=== PATIENT | male | born 1975 | race Caucasian/White ===

== ENCOUNTER 2016-07-12 02:09 | Emergency (ER) | payer OTHER ==
[2016-07-12 02:22] VITALS: BP 167/110
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
== END 2016-07-12 04:51 | disposition home or self-care (01) ==
LOC: JD.ED 02:09
DX: F45.8 Other somatoform disorders (principal); F41.8 Other specified anxiety disorders; F17.210 Nicotine dependence, cigarettes, uncomplicated; Z98.890 Other specified postprocedural states; Z79.899 Other long term (current) drug therapy
CPT/HCPCS: 36415; 36600; 80053; 82803; 85025; 85379; 85610; 85730; 93005; 99284; 99284-25

== ENCOUNTER 2017-11-28 18:34 | Emergency (ER) | payer BC, OTHER ==
[2017-11-28 18:44] VITALS: BP 134/89
--- NOTE | 2017-11-28 20:24 | EDM.PDOCBH ---
ED HPI GENERAL MEDICAL PROBLEM - General Chief Complaint: Behavioral/Psych Stated Complaint: MEDICAL CLERANCE Time Seen by Provider: 11/28/17 18:46 - History of Present Illness INITIAL COMMENTS - FREE TEXT/NARRATIVE: Social 42-year-old male with a history of depression presenting with reported suicidal ideation. Patient was reportedly binge drinking approximately one handle of liquor. He did begin to have some thoughts of self-harm. He called a friend who then asked him to call police. He called one of the [employer]'s department responded. The safety engineer's department nearly didn't transport him to the emergency department and felt that he had been safe but at the last moment he voiced some suicidal ideation and did not endorse a plan to them. To me the patient denies a plan as well. Patient does state that he's been depressed lately about losing custody of his kids and elevated Isael. He's also changing jobs. He put in his 2 weeks noticed that his current jowl started [employer] Patient states he has no prior suicide attempts. He has held a gun at times but never attempted to kill himself. He has no current access to firearms either. He takes duloxetine at home as well as citalopram. He's missed doses of past 2 days. He follows his psychiatrist and my not. He last fell about a month ago and has some follow-up scheduled but does know exactly when the appointment is. To me currently in the emergency department the patient denies any suicidal ideation. He also directly denies a plan to me at this time. He is forward- looking with hopes to see his children be there for them as a father. He also is curently wondering at what time he can be discharged because he has work tomorrow at 3 AM. Last drink was 2 hrs ago, no hx of etoh withdrawal. head Pain Score (Numeric/FACES): 5 - Related Data Allergies Allergy/AdvReac Type Severity Reaction Status Date / Time No Known Allergies Allergy Verified 11/28/17 18:44 Home Meds: Home Meds Citalopram Hydrobromide [Citalopram HBr] 40 mg PO DAILY 06/04/14 [History] Multivitamin [Multi-Vitamin Daily] 1 tab PO DAILY 09/10/14 [History] ClonazePAM [KlonoPIN] 0.5 mg PO BID PRN #6 tablet 06/05/15 [Rx] cloNIDine [Catapres] 0.2 mg PO BEDTIME 06/05/15 [History] DULoxetine [Cymbalta] 20 mg PO DAILY 11/28/17 [History] metFORMIN [Glucophage] 500 mg PO DAILY 11/28/17 [History] Past Medical History Other HEENT History: wears contacts Other Cardiovascular History: states BP has been "borderline" for yrs. Other Gastrointestinal History: states has stomach ulcer, states occ has "black , bloody substance" with stools. Other Musculoskeletal History: states has arthritis in L) ankle Neurological History: Reports: Migraines Psychiatric History: Reports: Anxiety, Depression, Suicidal Ideation Endocrine/Metabolic History: Reports: Diabetes, Type II Other Endocrine/Metabolic History: borderline - Past Surgical History HEENT Surgical History: Reports: Oral Surgery, Tonsillectomy Social & Family History - Family History Family Medical History: Noncontributory - Tobacco Use Smoking Status *Q: Current Every Day Smoker Years of Tobacco use: 4 Packs/Tins Daily: 0.5 - Caffeine Use Caffeine Use: Reports: Coffee, Soda - Recreational Drug Use Recreational Drug Use: No - Living Situation & Occupation Living situation: Reports: , Alone Occupation: Employed ED ROS GENERAL - Review of Systems Review Of Systems: See Below Constitutional: Reports: No Symptoms HEENT: Reports: No Symptoms Respiratory: Reports: No Symptoms Cardiovascular: Reports: No Symptoms Endocrine: Reports: No Symptoms GI/Abdominal: Reports: No Symptoms Psychiatric: Reports: Depression, Suicidal Ideation ED EXAM, BEHAVIORAL HEALTH - Physical Exam Exam: See Below Exam Limited By: Altered Mental Status General Appearance: Alert, No Apparent Distress Neck: Normal Inspection, Non-Tender Respiratory/Chest: No Respiratory Distress, Lungs Clear Cardiovascular: Normal Peripheral Pulses, Regular Rate, Rhythm GI/Abdominal: Soft, Non-Tender, No Distention Psychiatric: Alert, Normal Affect, Normal Cognition, Depressed Mood, Other ( Denies homicidal ideation, suicidal ideation. Has no plan for suicide. Denies any thoughts of self-harm as well. However he is depressed about his current situation and changing jobs. He is hopeful and looks to the future.) COURSE, BEHAVIORAL HEALTH COMP - Course Vital Signs: Last Vital Signs Temp 36.6 C 11/28/17 18:35 Pulse 79 11/28/17 18:35 Resp 18 11/28/17 18:35 BP 134/89 11/28/17 18:35 Pulse Ox 97 11/28/17 18:35 Orders, Labs, Meds: Active Orders 24 hr Category Date Time Status DRUG SCREEN, URINE [URCHEM] Stat Lab 11/28/17 19:55 Ordered Laboratory Tests 11/28/17 11/28/17 11/28/17 Range/Units 19:41 19:41 19:41 WBC 11.73 H (4.23-9.07) K/mm3 RBC 5.92 (4.63-6.08) M/mm3 Hgb 17.4 (13.7-17.5) gm/L Hct 51.0 (40.1-51.0) % MCV 86.1 (79.0-92.2) fl MCH 29.4 (25.7-32.2) pg MCHC 34.1 (32.2-35.5) g/dl RDW Std Deviation 45.4 H (35.1-43.9) fL Plt Count 190 (163-337) K/mm3 MPV 10.2 (9.4-12.3) fl Neut % (Auto) 69.9 H (34.0-67.9) % Lymph % (Auto) 18.9 L (21.8-53.1) % [place] % (Auto) 8.3 (5.3-12.2) % Eos % (Auto) 2.0 (0.8-7.0) Baso % (Auto) 0.7 (0.1-1.2) % Neut # (Auto) 8.20 H (1.78-5.38) K/mm3 Lymph # (Auto) 2.22 (1.32-3.57) K/mm3 [place] # (Auto) 0.97 H (0.30-0.82) K/mm3 Eos # (Auto) 0.24 (0.04-0.54) K/mm3 Baso # (Auto) 0.08 (0.01-0.08) K/mm3 Sodium 139 (136-145) mEq/L Potassium 3.9 (3.5-5.1) mEq/L Chloride 103 (98-107) mEq/L Carbon Dioxide 20 L (21-32) mEq/L Anion Gap 19.9 H (5-15) BUN 14 (7-18) mg/dL Creatinine 1.4 H (0.7-1.3) mg/dL Est Cr Clr Drug Dosing 82.15 mL/min Estimated GFR (MDRD) 56 (>60) mL/min BUN/Creatinine Ratio 10.0 L (14-18) Glucose 181 H (74-106) mg/dL Calcium 9.0 (8.5-10.1) mg/dL Total Bilirubin 0.3 (0.2-1.0) mg/dL AST 28 (15-37) U/L ALT 59 (16-63) U/L Alkaline Phosphatase 108 (46-116) U/L Total Protein 6.9 (6.4-8.2) g/dl Albumin 3.9 (3.4-5.0) g/dl Globulin 3.0 gm/dL Albumin/Globulin Ratio 1.3 (1-2) Salicylates 4.3 (2.8-20) mg/dL Urine Opiates Screen (NEGATIVE) Ur Buprenorphine Scrn (NEGATIVE) Ur Oxycodone Screen (NEGATIVE) Urine Methadone Screen (NEGATIVE) Ur Propoxyphene Screen (NEGATIVE) Acetaminophen 0 L (10-30) ug/mL Ur Barbiturates Screen (NEGATIVE) Ur Tricyclics Screen (NEGATIVE) Ur Phencyclidine Scrn (NEGATIVE) Ur Amphetamine Screen (NEGATIVE) U Methamphetamines Scrn (NEGATIVE) U Benzodiazepines Scrn (NEGATIVE) U Cocaine Metab Screen (NEGATIVE) U Marijuana (THC) Screen (NEGATIVE) Ethyl Alcohol 0.15 (0.00) gm% 11/28/17 Range/Units 19:55 WBC (4.23-9.07) K/mm3 RBC (4.63-6.08) M/mm3 Hgb (13.7-17.5) gm/L Hct (40.1-51.0) % MCV (79.0-92.2) fl MCH (25.7-32.2) pg MCHC (32.2-35.5) g/dl RDW Std Deviation (35.1-43.9) fL Plt Count (163-337) K/mm3 MPV (9.4-12.3) fl Neut % (Auto) (34.0-67.9) % Lymph % (Auto) (21.8-53.1) % [place] % (Auto) (5.3-12.2) % Eos % (Auto) (0.8-7.0) Baso % (Auto) (0.1-1.2) % Neut # (Auto) (1.78-5.38) K/mm3 Lymph # (Auto) (1.32-3.57) K/mm3 [place] # (Auto) (0.30-0.82) K/mm3 Eos # (Auto) (0.04-0.54) K/mm3 Baso # (Auto) (0.01-0.08) K/mm3 Sodium (136-145) mEq/L Potassium (3.5-5.1) mEq/L Chloride (98-107) mEq/L Carbon Dioxide (21-32) mEq/L Anion Gap (5-15) BUN (7-18) mg/dL Creatinine (0.7-1.3) mg/dL Est Cr Clr Drug Dosing mL/min Estimated GFR (MDRD) (>60) mL/min BUN/Creatinine Ratio (14-18) Glucose (74-106) mg/dL Calcium (8.5-10.1) mg/dL Total Bilirubin (0.2-1.0) mg/dL AST (15-37) U/L ALT (16-63) U/L Alkaline Phosphatase (46-116) U/L Total Protein (6.4-8.2) g/dl Albumin (3.4-5.0) g/dl Globulin gm/dL Albumin/Globulin Ratio (1-2) Salicylates (2.8-20) mg/dL Urine Opiates Screen Negative (NEGATIVE) Ur Buprenorphine Scrn Negative (NEGATIVE) Ur Oxycodone Screen Negative (NEGATIVE) Urine Methadone Screen Negative (NEGATIVE) Ur Propoxyphene Screen Negative (NEGATIVE) Acetaminophen (10-30) ug/mL Ur Barbiturates Screen Negative (NEGATIVE) Ur Tricyclics Screen Negative (NEGATIVE) Ur Phencyclidine Scrn Negative (NEGATIVE) Ur Amphetamine Screen Negative (NEGATIVE) U Methamphetamines Scrn Negative (NEGATIVE) U Benzodiazepines Scrn Negative (NEGATIVE) U Cocaine Metab Screen Negative (NEGATIVE) U Marijuana (THC) Screen Negative (NEGATIVE) Ethyl Alcohol (0.00) gm% Re-Assessment/Re-Exam: This is a 42-year-old male with a history depression presenting with some thoughts of self-harm. My initial evaluation the patient denied any suicidal ideation currently and also had no plan. He did however admit to having some thoughts of self-harm earlier. He is unable to state a coherent plan. However the nursing notes do mention that he may have thought of using a knife to cut his foot. I had a long conversation with the [facility] department who transported the patient. They felt he was almost low risk enough not even bring to the emergency department for evaluation. However he did voice some passive suicidal ideation which prompted them to bring him. It sounds like the patient was intoxicated at the time of his suicidal ideation with some slurred speech. This was some hours ago. His last drink was 2 hours ago. Currently in the emergency department the patient has no clinical signs of intoxication. He has no slurred speech he has a narrow-based steady gait and does not smell strongly of ethanol. CMP CBC were normal. Salicylate and acetaminophen negative and urine drug screen negative. The patient's alcohol level was 0.02. Nevertheless he does remain clinically sober and at this time I feel he can make his own decisions and answer my questions honestly. He continues to deny any active suicidal ideation and has no plan. He does admit to being depressed about the situation with his kids and his job. However he looks forward to seeing his kids again. And thinks it is very important to stay alive in order to be their father. He also furthermore asked the [facility]'s deputy without being prompted at what time he would be discharged as he was worried about waking up early for work at 3 AM. I had a long conversation with the patient regarding risks and at this time I feel his risk of suicide is acceptably low enough to be discharged safely and follow up with psychiatry as an outpatient. I provided him with multiple crisis resources hotlines and he always knows he can call 911 if he ever feels in danger. Patient knows I will follow up with him tomorrow personally by phone call to see when he has his follow-up psychiatry appointment. I advised the patient to avoid binge drinking as this could exacerbate his suicidal ideation. Also advised him to be compliant with his psychiatric medication. Patient states understanding and all questions were answered. He was discharged home, the [facility] department gave him a ride home. Departure - Departure Time of Disposition: 21:07 Disposition: Home, Self-Care 01 Condition: Good Clinical Impression: Depressive disorder - Discharge Information *PRESCRIPTION DRUG MONITORING PROGRAM REVIEWED*: No *COPY OF PRESCRIPTION DRUG MONITORING REPORT IN PATIENT HALLE: No Instructions: Suicidal Feelings: How to Help Yourself Referrals: PCP,None [Primary Care Provider] - Forms: ED Department Discharge Additional Instructions: You were seen in the ED tonight for depression and feelings of self-harm. These feelings have since passed now that you are sober and I feel it is safe for you to go home tonight. You should take your anti-depressant medication as directed. Also call your psychiatrist tomorrow and find out when your next appointment is. Avoid binge drinking as this can make depression worse. If at any time you feel like hurting yourself call [phone]. You can also call the [facility] Emergency Crisis lines [phone], , [phone]. - My Orders Last 24 Hours: My Active Orders 11/28/17 19:55 DRUG SCREEN, URINE [URCHEM] Stat - Assessment/Plan Last 24 Hours: My Active Orders 11/28/17 19:55 DRUG SCREEN, URINE [URCHEM] Stat
== END 2017-11-28 21:25 | disposition home or self-care (01) ==
LOC: JD.ED 18:34
DX: F32.9 Major depressive disorder, single episode, unspecified (principal); E11.9 Type 2 diabetes mellitus without complications; F17.210 Nicotine dependence, cigarettes, uncomplicated; Z79.899 Other long term (current) drug therapy
CPT/HCPCS: 36415; 80053; 80306; 85025; 99285; G0480; 99284

== ENCOUNTER 2018-06-28 16:21 | Emergency (ER) | payer BC ==
[2018-06-28 16:35] VITALS: BP 157/92
[2018-06-28] MEDS ORDERED: Aspirin 81 MG Tab.Chew PO ONE (17:07)
[2018-06-28] MEDS ORDERED: LORazepam 2 MG/ML SDV IVPUSH ONE (17:11)
[2018-06-28] MEDS ORDERED: HYDROmorphone 1 MG/ML Syringe IVPUSH ONE ×2 (17:12→18:24)
[2018-06-28] MEDS ORDERED: Ondansetron 4 MG/2 ML SDV IVPUSH ONE (17:14)
--- NOTE | 2018-06-28 17:14 | EDM.PDOC ---
ED HPI GENERAL MEDICAL PROBLEM - General Chief Complaint: Chest Pain Stated Complaint: CHEST PAIN AND SOB Time Seen by Provider: 06/28/18 16:52 Source of Information: Reports: Patient History Limitations: Reports: No Limitations - History of Present Illness INITIAL COMMENTS - FREE TEXT/NARRATIVE: 43-year-old male presents the ED with acute onset of severe left chest pain in the precordium radiating through to his scapula up into his left shoulder and down the medial aspect of his left arm. Patient states this developed as he was sitting at his desk doing computer work at about 1530 hrs. today. He himself has no cardiac history. His father however did from a myocardial infarction. Patient has some insight into being under a great deal of duress and stress at this time. He is a nonsmoker. He has type 2 diabetes control with metformin and diet. He does have hypertension and is on meds for this as well. He doesn't believe that his cholesterol is elevated. He does have a history of depression and anxiety. He is currently on citalopram 40 mg daily. He ran out of clonazepam 1 mg strength about a week ago. He was usually taking this daily at bedtime to help sleep and he admits that he has had a markedly disrupted sleep pattern the last several days. Denies any recent illness. Denies cough or sputum production. No fever or chills. Onset: Today Onset Date: 06/28/18 Onset Time: 15:30 Duration: Hour(s): Location: Reports: Chest, Back (Some pain in his left scalp upper scapula.), Upper Extremity, Left (Left shoulder and down the medial aspect of his arm to his elbow) Quality: Reports: Ache, Pressure, Other Severity: Moderate (Squeezing.) Improves with: Reports: None ( 8 out of 10) Worsens with: Reports: None Context: Denies: Activity, Exercise, Lifting, Sick Contact, Trauma, Other Associated Symptoms: Reports: Chest Pain, Loss of Appetite, Malaise. Denies: Confusion, Cough, cough w sputum, Fever/Chills, Headaches, Rash, Seizure, Shortness of Breath, Syncope, Weakness Treatments PADDOCK JUDGE: Reports: Other (see below) Left Chest Pain Score (Numeric/FACES): 8 - Related Data Allergies Allergy/AdvReac Type Severity Reaction Status Date / Time No Known Allergies Allergy Verified 06/28/18 16:35 Home Meds: Home Meds Citalopram Hydrobromide [Citalopram HBr] 40 mg PO DAILY 06/04/14 [History] Multivitamin [Multi-Vitamin Daily] 1 tab PO DAILY 09/10/14 [History] ClonazePAM [KlonoPIN] 0.5 mg PO BID PRN #6 tablet 06/05/15 [Rx] cloNIDine [Catapres] 0.2 mg PO BEDTIME 06/05/15 [History] metFORMIN [Glucophage] 500 mg PO DAILY 11/28/17 [History] Ondansetron [Zofran ODT] 4 mg PO Q6H PRN #7 tab.dis 03/01/18 [Rx] clonazePAM [Klonopin] 1 mg PO Q12H PRN #30 tablet 06/28/18 [Rx] Past Medical History Other HEENT History: wears contacts Other Cardiovascular History: states BP has been "borderline" for yrs. Other Gastrointestinal History: states has stomach ulcer, states occ has "black , bloody substance" with stools. Other Musculoskeletal History: states has arthritis in L) ankle Neurological History: Reports: Migraines Psychiatric History: Reports: Anxiety, Depression, Suicidal Ideation Endocrine/Metabolic History: Reports: Diabetes, Type II Other Endocrine/Metabolic History: borderline - Past Surgical History HEENT Surgical History: Reports: Oral Surgery, Tonsillectomy Social & Family History - Family History Family Medical History: Noncontributory - Tobacco Use Smoking Status *Q: Former Smoker Used Tobacco, but Quit: Yes Month/Year Tobacco Last Used: 1 year ago - Caffeine Use Caffeine Use: Reports: Soda - Recreational Drug Use Recreational Drug Use: No - Living Situation & Occupation Living situation: Reports: , Alone Occupation: Employed [employer] [employer] - Review of Systems Review Of Systems: See Below Constitutional: Reports: Fatigue (From not sleeping very well.). Denies: Fever , Chills, Malaise HEENT: Reports: No Symptoms Respiratory: Denies: Shortness of Breath, Wheezing, Pleuritic Chest Pain, Cough , Sputum Cardiovascular: Reports: Chest Pain, Blood Pressure Problem. Denies: Claudication (See history of present illness), Dyspnea on Exertion, Edema, Lightheadedness, Orthopnea, Palpitations GI/Abdominal: Reports: No Symptoms : Reports: Frequency Musculoskeletal: Reports: No Symptoms Skin: Reports: No Symptoms Neurological: Reports: Dizziness, Numbness, Tingling (In his hands at times.). Denies: Headache, Trouble Speaking, Difficulty Walking, Weakness, Gait Disturbance Psychiatric: Reports: Anxiety Hematologic/Lymphatic: Reports: No Symptoms Immunologic: Reports: No Symptoms ED EXAM, GENERAL - Physical Exam Exam: See Below Exam Limited By: No Limitations General Appearance: Alert, WD/WN, Moderate Distress, Other (Does appear quite anxious. Vital signs show BP 158/92 sats are 94% on room air but his hands are quite cool. Afebrile. Pulse 89 and sinus) Eye Exam: Bilateral Eye: Normal Inspection Neck: Normal Inspection, Supple, Non-Tender, Full Range of Motion. No: Carotid Bruit, Lymphadenopathy (L), Lymphadenopathy (R) Respiratory/Chest: No Respiratory Distress, Lungs Clear, Normal Breath Sounds, No Accessory Muscle Use, Other (No chest wall pain could be elicited on palpation of his ribs.) Cardiovascular: Normal Peripheral Pulses, Regular Rate, Rhythm, No Edema, No Gallop, No Murmur, No Rub Peripheral Pulses: 2+: Posterior Tibial (L), Posterior Tibial (R), Dorsalis Pedis (L), Dorsalis Pedis (R), 3+: Carotid (L), Carotid (R) GI/Abdominal: Normal Bowel Sounds, Soft, Non-Tender, No Organomegaly, No Distention, No Abnormal Bruit, No Mass, Pelvis Stable, Other (Negative Medina sign no epigastric tenderness) Back Exam: Normal Inspection, Full Range of Motion. No: CVA Tenderness (L), CVA Tenderness (R) Extremities: Normal Inspection, Normal Range of Motion, Non-Tender, No Pedal Edema, Normal Capillary Refill Neurological: Alert, Oriented, CN II-XII Intact, Normal Cognition Psychiatric: Anxious Skin Exam: Warm, Dry, Intact, Normal Color, No Rash EKG INTERPRETATION EKG Date: 06/28/18 Time: 16:30 Rhythm: NSR Rate (Beats/Min): 87 [place]: Normal P-Wave: Enlarged (Consider biatrial hypertrophy.) QRS: Other (Q waves V1 and V2 and near Q-wave V3 and V4. Questionable old anteroseptal myocardial infarction. Of note he has no history of RI. Decreased voltage precordial leads.) ST-T: Normal QT: Normal EKG Interpretation Comments: Abnormal ECG Course - Vital Signs Last Recorded V/S: Last Vital Signs Temp 36.8 C 06/28/18 16:31 Pulse 89 06/28/18 16:31 Resp 18 06/28/18 16:31 BP 157/92 H 06/28/18 16:31 Pulse Ox 94 L 06/28/18 16:31 - Orders/Labs/Meds Orders: Active Orders 24 hr Category Date Time Status EKG Documentation Completion [RC] STAT Care 06/28/18 16:53 Active Chest 1V Frontal [CR] Stat Exams 06/28/18 17:11 Taken Dextrose 5%-0.9% NaCl [Dextrose 5%-Normal Saline] 1,000 Med 06/28/18 17:15 Active ml IV ASDIRECTED Ketorolac [Toradol] Med 06/28/18 19:15 Active 30 mg IVPUSH ONETIME Medication Orders Dextrose/Sodium Chloride (Dextrose 5%-Normal Saline) 1,000 mls @ 150 mls/hr IV ASDIRECTED DANIEL Last Admin: 06/28/18 17:19 Dose: 150 mls/hr Ketorolac Tromethamine (Toradol) 30 mg IVPUSH ONETIME DANIEL Last Admin: 06/28/18 19:11 Dose: 30 mg Labs: Laboratory Tests 06/28/18 06/28/18 06/28/18 Range/Units 16:30 16:30 16:30 WBC 9.99 H (4.23-9.07) K/mm3 RBC 5.46 (4.63-6.08) M/mm3 Hgb 16.6 (13.7-17.5) gm/L Hct 48.2 (40.1-51.0) % MCV 88.3 (79.0-92.2) fl MCH 30.4 (25.7-32.2) pg MCHC 34.4 (32.2-35.5) g/dl RDW Std Deviation 43.8 (35.1-43.9) fL Plt Count 187 (163-337) K/mm3 MPV 10.8 (9.4-12.3) fl Neut % (Auto) 64.7 (34.0-67.9) % Lymph % (Auto) 24.9 (21.8-53.1) % Taney % (Auto) 8.9 (5.3-12.2) % Eos % (Auto) 0.8 (0.8-7.0) Baso % (Auto) 0.6 (0.1-1.2) % Neut # (Auto) 6.46 H (1.78-5.38) K/mm3 Lymph # (Auto) 2.49 (1.32-3.57) K/mm3 Taney # (Auto) 0.89 H (0.30-0.82) K/mm3 Eos # (Auto) 0.08 (0.04-0.54) K/mm3 Baso # (Auto) 0.06 (0.01-0.08) K/mm3 PT 10.9 (9.5-12.1) SECONDS INR 1.00 APTT 25 (24-31) SECONDS Sodium 140 (136-145) mEq/L Potassium 3.7 (3.5-5.1) mEq/L Chloride 104 (98-107) mEq/L Carbon Dioxide 23 (21-32) mEq/L Anion Gap 16.7 H (5-15) BUN 13 (7-18) mg/dL Creatinine 1.2 (0.7-1.3) mg/dL Est Cr Clr Drug Dosing 94.87 mL/min Estimated GFR (MDRD) > 60 (>60) mL/min BUN/Creatinine Ratio 10.8 L (14-18) Glucose 149 H (74-106) mg/dL Calcium 9.4 (8.5-10.1) mg/dL Magnesium (1.8-2.4) mg/dl Total Bilirubin 0.4 (0.2-1.0) mg/dL AST 27 (15-37) U/L ALT 64 H (16-63) U/L Alkaline Phosphatase 82 (46-116) U/L CK-MB (CK-2) (0-3.6) ng/ml Troponin I < 0.017 (0.00-0.056) ng/mL C-Reactive Protein < 0.2 (<1.0) mg/dL Total Protein 7.1 (6.4-8.2) g/dl Albumin 4.1 (3.4-5.0) g/dl Globulin 3.0 gm/dL Albumin/Globulin Ratio 1.4 (1-2) TSH 3rd Generation (0.358-3.74) uIU/mL 06/28/18 Range/Units 16:30 WBC (4.23-9.07) K/mm3 RBC (4.63-6.08) M/mm3 Hgb (13.7-17.5) gm/L Hct (40.1-51.0) % MCV (79.0-92.2) fl MCH (25.7-32.2) pg MCHC (32.2-35.5) g/dl RDW Std Deviation (35.1-43.9) fL Plt Count (163-337) K/mm3 MPV (9.4-12.3) fl Neut % (Auto) (34.0-67.9) % Lymph % (Auto) (21.8-53.1) % Taney % (Auto) (5.3-12.2) % Eos % (Auto) (0.8-7.0) Baso % (Auto) (0.1-1.2) % Neut # (Auto) (1.78-5.38) K/mm3 Lymph # (Auto) (1.32-3.57) K/mm3 Taney # (Auto) (0.30-0.82) K/mm3 Eos # (Auto) (0.04-0.54) K/mm3 Baso # (Auto) (0.01-0.08) K/mm3 PT (9.5-12.1) SECONDS INR APTT (24-31) SECONDS Sodium (136-145) mEq/L Potassium (3.5-5.1) mEq/L Chloride (98-107) mEq/L Carbon Dioxide (21-32) mEq/L Anion Gap (5-15) BUN (7-18) mg/dL Creatinine (0.7-1.3) mg/dL Est Cr Clr Drug Dosing mL/min Estimated GFR (MDRD) (>60) mL/min BUN/Creatinine Ratio (14-18) Glucose (74-106) mg/dL Calcium (8.5-10.1) mg/dL Magnesium 2.0 (1.8-2.4) mg/dl Total Bilirubin (0.2-1.0) mg/dL AST (15-37) U/L ALT (16-63) U/L Alkaline Phosphatase (46-116) U/L CK-MB (CK-2) < 0.5 (0-3.6) ng/ml Troponin I (0.00-0.056) ng/mL C-Reactive Protein (<1.0) mg/dL Total Protein (6.4-8.2) g/dl Albumin (3.4-5.0) g/dl Globulin gm/dL Albumin/Globulin Ratio (1-2) TSH 3rd Generation 1.817 (0.358-3.74) uIU/mL Meds: Medications Generic Name Dose Route Start Last Admin Trade Name Freq PRN Reason Stop Dose Admin Dextrose/Sodium Chloride 1,000 mls @ 150 mls/hr 06/28/18 17:15 06/28/18 17:19 Dextrose 5%-Normal Saline IV 150 mls/hr ASDIRECTED DANIEL Administration Ketorolac Tromethamine 30 mg 06/28/18 19:15 06/28/18 19:11 Toradol IVPUSH 30 mg ONETIME DANIEL Administration Discontinued Medications Generic Name Dose Route Start Last Admin Trade Name Freq PRN Reason Stop Dose Admin Aspirin 324 mg 06/28/18 17:07 06/28/18 17:16 Aspirin PO 06/28/18 17:08 324 mg ONETIME ONE Administration Hydromorphone HCl 0.5 mg 06/28/18 17:12 06/28/18 17:23 Dilaudid IVPUSH 06/28/18 17:13 0.5 mg ONETIME ONE Administration Hydromorphone HCl 0.5 mg 06/28/18 18:24 06/28/18 18:29 Dilaudid IVPUSH 06/28/18 18:25 0.5 mg ONETIME ONE Administration Lorazepam 0.5 mg 06/28/18 17:11 06/28/18 17:25 Ativan IVPUSH 06/28/18 17:12 0.5 mg ONETIME ONE Administration Ondansetron HCl 4 mg 06/28/18 17:14 06/28/18 17:20 Zofran IVPUSH 06/28/18 17:15 4 mg ONETIME ONE Administration - Radiology Interpretation Free Text/Narrative:: 43-year-old male presents to the ED with a 1 hour history of left left precordial chest pressure heaviness rating through to his left scapula and down his medial left arm. Patient is quite anxious. He has a family history of heart disease with his father dying from heart attack. Patient has history of hypertension and is a type II diabetic controlled with metformin and diet. His knowledge he has not had any cardiac problems in the past. Examination is normal. No chest wall pain could be elicited lungs are clear heart was sinus. ECG does show suggest possibility of an old anteroseptal myocardial infarction with Q waves V1 and V2 and near Q-wave in V3 and V4. There are no signs of acute ischemia. Plan patient will be treated as if he is a myocardial infarction until we prove otherwise. Will be given aspirin 324 mg chewed. Given Ativan 0.5 mg IV for anxiety relief. Dilaudid 0.5 mg IV for pain relief and Reglan 7.5 mg IV for nausea. Markers have already been drawn. Chest x-ray to be done. - Re-Assessments/Exams Free Text/Narrative Re-Assessment/Exam: 06/28/18 18:00: Chest x-ray reveals normal cardiac silhouette. Visualized portion of the lungs are clear without any infiltrates. No pneumothorax. Patient is having persistent left precordial chest pain. He was able to nap for sure. Time after the Ativan and initial dose of Dilaudid. Will repeat Dilaudid 0.5 mg IV. 06/28/18 18:23 Labs reveal a normal white count at 9.99. Differential is 65% neutrophils. Hemoglobin 16.6 with hematocrit of 40.2 suggesting mild hemoconcentration. Will job placement counselor 187,000. PT is 10.9 with an INR 1.0 PTT is 25. Sodium is 140 with potassium of 3.7. Chloride is 104 with a bicarbonate of 23. And a gap is mildly elevated at 16.7. BUN is 13 with a creatinine of 1.2. GFR is greater than 60. BUN/creatinine ratio is 10.8. Glucose 149. Calcium is 9.4. Magnesium is 2.0. ALT is mildly elevated at 60 for the remainder the liver function is normal. CK-MB fraction is less than 0.5 troponin I is less than 0.017. C-reactive protein less than 0.2. Total protein 7.1. Albumin fraction 4.1. Patient advised of the findings of his labs which rule out recent myocardial infarction. His ECG ECG is as fairly abnormal and I would suggest that he have an ECG stress test done in the near future. He'll be given Toradol 30 mg IV for further relief of pain at this time. He is feeling much better after the last dose of Dilaudid 0.5 mg IV. He has good insight that this pain is likely related to underlying to rest/stress. Decision made to refill his clonazepam 1 mg strength to be taken primarily at bedtime to aid sleep but could be taken every 12 hours if needed to help reduce anxiety and stress. Advised follow-up with his personal care physician to arrange ECG stress testing. Departure - Departure Time of Disposition: 19:20 Disposition: Home, Self-Care 01 Reason for Transfer *Q: Other Condition: Fair Clinical Impression: Non-cardiac chest pain, Anxiety Prescriptions: clonazePAM [Klonopin] 1 mg PO Q12H PRN #30 tablet PRN Reason: relief of anxiety/sleep Instructions: Generalized Anxiety Disorder, Adult Referrals: Paul Sandhu Jr, MD [Primary Care Provider] - Forms: ED Department Discharge Additional Instructions: Evaluation the emergency room today in regards to the development of his severe left-sided chest pain well seated at her desk working this afternoon. Pain became very intense squeezing and pressure in the left anterior chest rating up into the left shoulder and down the inside of your left arm. These are also signs and symptoms of heart attack. Therefore you have worked up for myocardial infarction and no signs of heart related illness have been identified. ECG or heart tracing was normal. Chest x-ray reveals normal lungs and heart. Lab tests were very specific in ruling out any heart related illness or heart attack. No blood clots were appreciated in the lungs. Pain does not seem to be coming from the chest wall on examination. It can be from spasm deeper within the chest wall of muscles between the ribs. As you indicated you under a great deal of duress/stress at this time and it may be playing a strong role in the development of your chest pain. You were treated in the ED with intravenous medications Dilaudid 0.5 mg 2 doses and Reglan 7.5 mg to prevent any nausea or vomiting from the narcotic medication. He also received Ativan 0.5 mg IV for relief of anxiety. He also received Toradol 30 mg IV to relieve inflammation. This treatment at home to be Motrin 600 mg every 6 hours as needed for chest pain if required. Clonazepam 1 mg every 12 hours as needed for relief of anxiety or bedtime to aid sleep. Lack of sleep is one of the most common causes of overwhelming anxiety. Up with personal care physician if any further problems continue. - My Orders Last 24 Hours: My Active Orders 06/28/18 17:11 Chest 1V Frontal [CR] Stat 06/28/18 17:15 Dextrose 5%-0.9% NaCl [Dextrose 5%-Normal Saline] 1,000 ml IV ASDIRECTED 06/28/18 19:15 Ketorolac [Toradol] 30 mg IVPUSH ONETIME - Assessment/Plan Last 24 Hours: My Active Orders 06/28/18 17:11 Chest 1V Frontal [CR] Stat 06/28/18 17:15 Dextrose 5%-0.9% NaCl [Dextrose 5%-Normal Saline] 1,000 ml IV ASDIRECTED 06/28/18 19:15 Ketorolac [Toradol] 30 mg IVPUSH ONETIME
[2018-06-28] MEDS ORDERED: Dextrose 5%-0.9% NaCl 1,000 ML IV SCH (17:15)
[2018-06-28] MEDS ORDERED: Ketorolac 30 MG/ML SDV IVPUSH SCH (19:15)
--- NOTE | 2018-06-29 06:47 | CR ---
Chest: Portable view of the chest was obtained. Comparison: Prior chest x-ray of 09/10/14. Heart size and mediastinum are normal. Lungs are clear. Bony structures are grossly intact. Impression: 1. Nothing acute is seen on portable chest x-ray. Diagnostic code #1
== END 2018-06-28 19:38 | disposition home or self-care (01) ==
LOC: JD.ED 16:21
DX: F41.9 Anxiety disorder, unspecified (principal); R07.89 Other chest pain; F32.9 Major depressive disorder, single episode, unspecified; E11.9 Type 2 diabetes mellitus without complications; Z79.84 Long term (current) use of oral hypoglycemic drugs; Z79.899 Other long term (current) drug therapy; Z87.891 Personal history of nicotine dependence
CPT/HCPCS: 36415; 71045; 80053; 82553; 83735; 84443; 84484; 85025; 85610; 85730; 86140; 93005; 96361; 96374; 96375; 96376; 99285; A9270; J1170; J1885; J2060; J2405; J7042; 93010

== ENCOUNTER 2019-06-19 09:50 | Emergency (ER) | payer BC ==
[2019-06-19 10:08] VITALS: BP 134/91; PULSE 82
[2019-06-19] MEDS ORDERED: Albuterol/Ipratropium 3.0-0.5 MG/3 ML Neb Soln NEB ONE (10:15)
[2019-06-19] MEDS ORDERED: LORazepam 1 MG Tab PO ONE (10:16)
[2019-06-19] MEDS ORDERED: Ibuprofen 800 MG Tab PO ONE (10:21)
[2019-06-19] MEDS ORDERED: Ibuprofen 800 MG Tab ONE (10:24)
[2019-06-19] MEDS ORDERED: Albuterol 6.7 GM Inhaler INH ONE (10:26)
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
--- NOTE | 2019-06-19 13:21 | CR ---
Chest: Portable view of the chest was obtained. Comparison: Previous chest x-ray of 06/28/18. Heart size and mediastinum are normal. Lungs are clear. Bony structures are unremarkable. Impression: 1. Nothing acute is seen on frontal chest x-ray. Diagnostic code #1 This report was dictated in MDT
== END 2019-06-19 12:05 | disposition home or self-care (01) ==
LOC: JD.ED 09:50
DX: J06.9 Acute upper respiratory infection, unspecified (principal); I10 Essential (primary) hypertension; M19.90 Unspecified osteoarthritis, unspecified site; F41.9 Anxiety disorder, unspecified; F32.9 Major depressive disorder, single episode, unspecified; E11.9 Type 2 diabetes mellitus without complications; E66.9 Obesity, unspecified; Z68.32 Body mass index [BMI] 32.0-32.9, adult; F17.210 Nicotine dependence, cigarettes, uncomplicated; Z79.899 Other long term (current) drug therapy
CPT/HCPCS: 36415; 71045; 80053; 85025; 86140; 87804; 99285; A9270; U0001